=== PATIENT | female | born 1975 | race Caucasian/White ===

== ENCOUNTER 2017-05-28 18:37 | Inpatient (IN) | END 2017-05-30 13:00 | disposition home or self-care (01) | DRG 446 | DX: K80.20 Calculus of gallbladder without cholecystitis without obstruction (principal); E03.9 Hypothyroidism, unspecified; G43.909 Migraine, unspecified, not intractable, without status migrainosus; D50.9 Iron deficiency anemia, unspecified ==

== ENCOUNTER 2017-06-19 11:01 | Day surgery (SDC) | payer OTHER ==
[~2017-06-19] VITALS: Ht 162.6 cm; Wt 77.0 kg
[2017-06-19] VITALS (13 sets, daily range): BP systolic 97–121; BP diastolic 43–63; PULSE 68–98; RESP 12–21; Ht 162.6 cm; Wt 77.0 kg
[~2017-06-19 11:01] MED LIST: ACET500C5 PO; CEFAZOLIN 2 GM/50 ML (PMX) 50 ML IVPB ONE; LEVO112T56 PO; RANI150T9 PO; SOD CHLORIDE 0.9% 1,000 ML IV ONE
[2017-06-19] MEDS ORDERED: LEVO200T45 PO (12:02)
[2017-06-19] MEDS ORDERED: LIDOCAINE 2% (SDV) 5 ML INJ ONE (12:21)
[2017-06-19] MEDS ORDERED: PROPOFOL 20 ML ONE (12:21)
[2017-06-19] MEDS ORDERED: SUCCINYLCHOLINE CHLORIDE 100 MG/5 ML SYG IV ONE (12:21)
[2017-06-19] MEDS ORDERED: MIDAZOLAM 1 MG/ML 2 ML INJ ONE (12:22)
[2017-06-19] MEDS ORDERED: FENTAnyl 50 MCG/ML VIAL ONE (12:22)
[2017-06-19] MEDS ORDERED: GLYCOPYRROLATE 0.4 MG INJ ONE (12:30)
[2017-06-19] MEDS ORDERED: BUPIVACAINE 0.25% (MPF) 30 ML INJ ONE (12:49)
[2017-06-19] MEDS ORDERED: MEPERIDINE 25 MG INJ IV PRN (13:00)
[2017-06-19] MEDS ORDERED: DIPHENHYDRAMINE 50 MG INJ IV PRN (13:00)
[2017-06-19] MEDS ORDERED: ONDANSETRON 4 MG INJ IV PRN (13:00)
[2017-06-19] MEDS ORDERED: OXYCODONE/ACETAMINOPHEN (5/325) TAB PO PRN ×2 (13:00)
[2017-06-19] MEDS ORDERED: PROCHLORPERAZINE 10 MG INJ IV PRN (13:00)
[2017-06-19] MEDS ORDERED: HYDROmorphONE (0.2 MG/ML) 10ML SYG IV PRN ×2 (13:00)
[2017-06-19] MEDS ORDERED: FENTAnyl 50 MCG/ML VIAL IV PRN (13:00)
[2017-06-19] MEDS ORDERED: ROCURONIUM 50 MG INJ ONE (13:16)
[2017-06-19] MEDS ORDERED: ONDANSETRON 4 MG INJ ONE (13:16)
[2017-06-19] MEDS ORDERED: DEXAMETHASONE 4 MG/ML 1 ML INJ ONE (13:16)
[2017-06-19] MEDS ORDERED: CEFAZOLIN 1 GM INJ ONE (13:16)
[2017-06-19] MEDS ORDERED: METOCLOPRAMIDE 10 MG INJ ONE (13:16)
[2017-06-19] MEDS ORDERED: HYDROmorphONE 2 MG/ML SYG ONE (13:33)
[2017-06-19] MEDS ORDERED: SUGAMMADEX SODIUM 200 MG/2 ML VIAL IV ONE (13:42)
--- NOTE | 2017-06-19 13:48 | OPR ---
Date/Time of Note Date/Time of Note DATE: 06/19/17 TIME: 13:45 Operative Report Procedure Date: Jun 19, 2017 Preoperative Diagnosis symptomatic gallstones Postoperative Diagnosis same Operation/Procedure Performed 1. laparoscopic cholecystectomy 2. therapeutic injection of subcutaneous local anesthesia Surgeon see signature line Head Butler guido ruiz Anesthesia Type: general Estimated Blood Loss: 0 - 10 ml's Transfusion none Specimen gallbladder Grafts/Implants none Complications none Pt Condition Post Procedure: stable Indications This is a 5-year-old female with subclinical sounds. She requests surgical excision of her gallbladder. Risks alternatives benefits and percent were discussed the patient. Patient's best understanding consents to the operation. Procedure Description Patient taken to the OR and prepped and draped in usual sterile fashion. Surgical timeout was performed. IV antibiotics given. Infraumbilical transverse incision is made with a 15 blade. Dissection cautery was carried onto the fascia. The fascia was grasped with Tari's and divided with curved Padilla scissors. 0 Vicryl U stitch was placed to the fascia. Blueness on trocar is introduced. Pneumoperitoneum is established. Midepigastric 12 mm optical trocar was placed under direct visualization. Right upper quadrant upper flank 5 mm optical trocar was placed under direct visualization. Upon initial inspection there was adhesions to the gallbladder which were taken down bluntly. The gallbladder was grasped and retracted in a lateral and our direction. This allowed visualization of the cystic duct which was carefully dissected out using cautery. The cystic duct was identified and the critical view is established the cystic duct and cystic artery were divided with 3 clips proximal and clip distal. The division was also reinforced with 35 mm echelon vessel stapler. The gallbladder was taken of the gallbladder bed. There is good hemostasis. The gallbladder was retrieved using Endo Catch bag. Ports removed under direct visualization. 0 Vicryl U stitch was tied down. Skin was closed using skin treva. Therapeutic subcutaneous local anesthesia was injected throughout the incision sites. Dry dressings were applied. Henrietta CHILDRESS Jun 19, 2017 13:48
[2017-06-19] MEDS ORDERED: HYDROCODONE/APAP (5/325) TAB PO ONE (14:00)
== END 2017-06-19 16:50 | disposition home or self-care (01) ==
LOC: SDS 11:01
PROVIDERS: ATTEND Surgery
DX: K80.10 Calculus of gallbladder with chronic cholecystitis without obstruction (principal); E03.9 Hypothyroidism, unspecified; E66.9 Obesity, unspecified; Z68.29 Body mass index [BMI] 29.0-29.9, adult
CPT/HCPCS: 47562; 84703; 88304; J0690; J1100; J1170; J2250; J2405; J2765; J3010; Z7512; Z7610

== ENCOUNTER 2017-09-06 02:43 | Emergency (ER) | END 2017-09-06 04:05 | disposition home or self-care (01) ==

== ENCOUNTER 2017-10-12 11:43 | Emergency (ER) | END 2017-10-12 14:14 | disposition home or self-care (01) ==